=== PATIENT | male | born 1995 | race Two or more races ===

== ENCOUNTER 2024-11-29 22:52 | Inpatient (IN) | payer OTHER, SELFPAY ==
[2024-11-29] VITALS (17 sets, daily range): BP systolic 114–154; BP diastolic 82–104
--- NOTE | 2024-11-29 16:53 | ED.GENMED ---
History of Present Illness
General
Chief Complaint: Abdominal Symptoms
Time Seen by Provider: 11/29/24 16:52
History of Present Illness
History of Present Illness:
FOCUSED PAST MEDICAL HISTORY
- Cerebral palsy, hydrocephalus, has had sigmoid volvulus
REVIEW OF OLD RECORDS
- No old records available for review in [facility]
Note:
CHIEF COMPLAINT(S)
Abdominal pressure and pain.
HISTORY OF PRESENT ILLNESS
The patient is a 29-year-old male who presents with a chief complaint of abdominal pressure and pain. The discomfort began months ago but has worsened significantly in the past two to three days. The patient describes the sensation as 'pressure' in
the abdomen, triggered by minimal touch. He has a history of a past abdominal surgery as a small child, which included a fundoplication in [place] and surgical intervention in 2017 for sigmoid volvulus at [facility] of note, mother is unhappy with
the care at [facility].. The recent exacerbation of symptoms prompted this visit. The patient denies any episodes of vomiting and reports regular bowel movements, typically occurring daily.
PAST MEDICAL AND SURIGICAL HISTORY
The patient has a history of undergoing fundoplication at and surgical intervention for sigmoid volvulus. The original surgical procedures were performed in [place], with the most recent one occurring in 2017.
EXTERNAL RECORDS REVIEWED
No external records available as the patient recently moved to this area from a different location, and there are no documented medical records at this facility.
SOCIAL HISTORY
The patient resides in [place].
PHYSICAL EXAM
General: Alert, appears comfortable unless his abdomen is palpated
Skin: Warm, dry.
Head: Normocephalic, atraumatic.
Neck: Supple, trachea midline.
Eye Ears, nose, mouth and throat: Oral mucosa moist.
Cardiovascular: Normal peripheral perfusion, no edema.
Respiratory: Respirations are non-labored.
Gastrointestinal: There is moderate diffuse abdominal tenderness with no definite peritoneal signs, surgical scar noted in the lower abdomen and upper abdomen
Back: Normal range of motion, normal alignment.
Musculoskeletal: Normal ROM, normal strength.
Neurological: Abnormal speech pattern consistent with known diagnosis of cerebral palsy, decreased strength all extremities, poor coordination chronic
Psychiatric: Cooperative, appropriate mood & affect.
PROBLEM LIST
Acute:
- Abdominal pressure and pain
Chronic:
- History of fundoplication
- History of sigmoid volvulus
PLAN
- Recommend a computed tomography (CT) scan of the abdomen to assess the cause of the abdominal pressure and pain.
DIFFERENTIAL DIAGNOSIS
The Differential Diagnosis includes, in no particular order and is not limited to:
1. Adhesions from previous surgeries
2. Recurrent volvulus
3. Partial bowel obstruction
4. Abdominal hernia
5. Intra-abdominal mass
6. Gastroesophageal reflux disease
7. Peptic ulcer disease
8. Irritable bowel syndrome
9. Diverticulitis
10. Pancreatitis
RADIOLOGY
- CT imaging obtained
EKG
- Sinus 96, normal axis, nonspecific ST
LABS
- White count normal, hemoglobin 18.2, normal chemistries and lipase
UPDATE
-SUMMARY OF ENCOUNTER
The patient, a 29-year-old male, presented to the emergency department with a chief complaint of worsening abdominal pressure and pain over the past two to three days. The pain, described as a pressure sensation, is exacerbated by minimal touch. The
patients past surgical history includes a fundoplication and surgical intervention for a sigmoid volvulus, with the most recent procedure in 2017. Given the history and current symptoms, there is a concern for possible complications such as
adhesions or recurrent volvulus. The recommendation for further evaluation was made after consultation with a colorectal surgeon.
I discussed case with Dr. Jo who suggested, given the patient's worsening symptoms, patient be admitted to the hospitalist service and they can evaluate later and consider procedure if needed
DISPOSITION
Admit.
MANAGEMENT OF THE PATIENTS CARE WAS DISCUSSED WITH
The emergency physician discussed the case with both a colorectal surgeon and hospitalist doctors. The recommendation, as per the colorectal surgeon, was to admit the patient for further evaluation by the surgical team.
PLAN
The plan is to admit the patient for further evaluation by the colorectal surgical team. The hospitalist will assess the patient during the hospital stay, and the colorectal doctors will evaluate the patient further the following day.
MEDICAL DECISION MAKING
- Number and Complexity of Problems Addressed: Chronic conditions affecting care include the history of fundoplication and sigmoid volvulus. Differential diagnosis considerations include adhesions from previous surgeries, recurrent volvulus, partial
bowel obstruction, abdominal hernia, intra-abdominal mass, gastroesophageal reflux disease, peptic ulcer disease, irritable bowel syndrome, diverticulitis, and pancreatitis.
DIAGNOSIS
- Sigmoid colonic stricture
Phy Exam
Physical Exam
Physical Exam:
See HPI
Course
Orders/Labs/Results
Orders:
Orders
11/29/24 13:08
EKG [Electrocardiogram (*1)] Urgent
Reason for Study: Chest Pain
EKG- Treatment ONCE
11/29/24 17:02
CT Abd/pelvis W Iv Cont Urgent
Comment:
Reason For Exam: h/o Marc as child; sigmoid vololus surg 2017;harish
0.9% Sodium Chloride 1000 ml [Nss] 1,000 ml IV BOLUS
11/29/24 17:48
Complete Blood Count/With Diff Urgent
11/29/24 19:01
Comprehensive Metabolic Panel Urgent
Lipase Urgent
Abnormal Lab Results
11/29/24 11/29/24
17:48 19:01
Hgb 18.2 H g/dL
(13.0-18.0)
Hct 52.4 H %
(39.0-52.0)
Absolute Monos (auto) 0.7 H 10^3/uL
(0.1-0.6)
Lymphocytes % 17.0 L %
(20.5-51.1)
Creatinine 0.4 L mg/dL
(0.7-1.3)
11/29/24 17:48
11/29/24 19:01
Vital Signs
Initial and Last Documented VS:
Initial Vital Signs
Pulse Resp BP Pulse Ox
110 17 125/89 98
11/29/24 13:13 11/29/24 13:13 11/29/24 13:13 11/29/24 13:13
Last Documented Vital Signs
Pulse Resp BP Pulse Ox
110 20 138/96 97
11/29/24 13:13 11/29/24 17:11 11/29/24 20:00 11/29/24 20:45
*Pulse Oximetry
SaO2: 98
Oxygen Mode of Delivery: Room air
Patient hypoxic: no
*Critical Care Note
Total Time (30-74mins, 75-104mins- exclusive of procedures): Not Applicable
ED Attending Note
-
Portions of this chart may have been created with voice recognition software.� Occasional wrong word or��sound alike� substitutions may have occurred due to the inherent limitations of voice recognition software.
Discharge Plan
Departure
Patient Disposition: Admit
Date of Disposition: 11/29/24
Time of Disposition: 21:15
Presentation/result/management discussed w/ accepting MD/DO: Hospitalist
Discharge Problem:
Abdominal pain
Referrals:
Deloris Tompkins DO [Family Provider, Internal Medicine]
Interventions
Interventions:
*Risk Screen - Suicide Last Done: 11/29/24 13:13
*General Assessment Last Done: 11/29/24 13:13
*Neglect/Abuse Screening Last Done: 11/29/24 13:13
*ED- Fall Risk Assessment Last Done: 11/29/24 17:12
*ED COVID-19 Vaccine History Last Done: 11/29/24 13:13
FL-Dslgvy-Wsdtxmkoee Assessment Last Done: 11/29/24 17:11
Discharge Date and Time
Print Language: GREENLANDIC
[2024-11-29 17:54] LABS: Hematocrit 52.4 % (39.0-52.0); Hemoglobin 18.2 g/dL (13.0-18.0); Mean Corp Hgb Conc. 34.7 g/dL (33.0-37.0); Mean Corpuscular Volume 86.5 fL (80.0-94.0); Nucleated Red Blood Cells % 0 % (-); Platelet Count 275 10^3/uL (130-400); Red Cell Dist. Width 12.3 % (11.5-14.5)
[2024-11-29] MEDS: NSS 1000 IV (18:01)
[2024-11-29 19:27] LABS: ALT (SGPT) 32 U/L (0-50); AST (SGOT) 35 U/L (17-59); Albumin 4.1 g/dl (3.5-5.0); Alkaline Phosphatase 89 U/L (38-126); Blood Urea Nitrogen 12 mg/dl (9-20); Calcium 9.3 mg/dl (8.4-10.2); Carbon Dioxide 24 mmol/L (22-30); Chloride 107 mmol/L (98-107); Glucose 70 mg/dl (70-99); Lipase 48 U/L (23-300); Potassium 3.6 mmol/L (3.5-5.1); Sodium 139 mmol/L (135-145); Total Protein 6.6 g/dl (6.3-8.2); eGFR > 60.00
--- NOTE | 2024-11-29 22:34 | HPS.HSE ---
Addendum entered and electronically signed by Barbie Corado MD 11/30/24 00:48:
Patient on Eliquis for prior DVT. Will hold in anticipation of any procedures.
Addendum entered and electronically signed by Barbie Corado MD 11/29/24 23:58:
Patient has G-tube and gets feedings via G-tube.
Original Note:
Family Physician
-
Family Physician: Deloris Tompkins
Chief Complaint
-
abdominal pain
History of Present Illness
29-year-old male past medical history of cerebral palsy, hydrocephalus with UMBRELLA FRAME MAKER shunt revised several times now draining to the right atrium, paraesophageal hernia as a child status post Marc fundoplication in [place] with persistent hernia,
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
months. He has severe pain in his right upper quadrant area which is sensitive to even touch. He has been eating but only eats once a day. Denies any fevers or chills. He has a history of constipation takes bowel regimen. Denies vomiting.
No chest pain or shortness of breath.
Patient follows with [facility] physicians for paraesophageal hernia and has seen GI, cardiothoracic surgery and surgeons and are not satisfied with the care they are receiving. Has a portion of the pancreas and the hernia.
Medical History
Past Medical History
Past Medical History: Reports Other (cerebral palsy, hydrocephalus with UMBRELLA FRAME MAKER shunt revised several times now draining to the right atrium, paraesophageal hernia as a child status post Marc fundoplication in [place] with persistent hernia, sigmoid
volvulus status post colon resection and anastomosis in 2017 at [facility], constipation, )
Past Surgical History: Reports Other (Marc fundoplication, UMBRELLA FRAME MAKER shunt with revisions, sigmoid volvulus status post colon resection)
Social History
Tobacco: Non-smoker
Alcohol: None
Drug: None
Family History
Family History: Not pertinent
Allergies / Home Medications
Allergies reflects when Allergies were last updated in [employer].
Home Medications with original date entered in [employer]
Allergy/Medication List:
Allergies
Allergy/AdvReac Type Severity Reaction Status Date / Time
vancomycin Allergy Rash Verified 11/29/24 13:21
Review of Systems
-
History Source: Patient
A 12 point ROS was completed and negative except as noted: Yes
Constitutional: Reports No Symptoms
EENT: Reports No Symptoms
Respiratory: Reports No Symptoms
Cardiac: Reports No Symptoms
Abdomen/GI: Reports See HPI
: Reports No Symptoms
Musculoskeletal: Reports No Symptoms
Skin: Reports No Symptoms
Neurological: Reports No Symptoms
Endocrine: Reports No Symptoms
Hematologic/Lymphatic: Reports No Symptoms
Psych: Reports No Symptoms
Physical Exam
Vital Signs
Vital Signs
Pulse Resp BP Pulse Ox
106 18 133/84 93
11/29/24 22:05 11/29/24 22:05 11/29/24 22:00 11/29/24 22:00
Physical Exam
General: Well Developed, Well Nourished and No Apparent Distress
HEENT: NormoCephalic, Moist mucous membranes and Atraumatic
Respiratory: Clear
Cardiac: S1/S2 and Regular Rhythm; No Murmur or Rub
GI: Soft, Normal Bowel Sounds, Tender (diffusely ) and Distended; No Organomegaly
Rectal: Deferred by Provider
Musculoskeletal: No Clubbing, No Cyanosis and No Edema
Skin: No Rash
Neuro: Nonfocal/grossly intact
Laboratory Results
-
11/29/24 17:48
11/29/24 19:01
Laboratory Results
Total Bilirubin 0.9 mg/dl (0.2-1.3) 11/29/24 19:01
AST 35 U/L (17-59) 11/29/24 19:01
ALT 32 U/L (0-50) 11/29/24 19:01
Alkaline Phosphatase 89 U/L (38-126) 11/29/24 19:01
Lipase 48 U/L (23-300) 11/29/24 19:01
Data Reviewed
-
Lab Data: Labs Reviewed by me
Old Records: Reviewed
Impression/Plan
-
IMPRESSION:
PLAN:
# Sigmoid colon stricture secondary to prior colon resection
# History of sigmoid volvulus status post colon resection anastomosis in 2017
- CT abdomen pelvis shows sigmoid colon stricture causing mild colonic dilatation
-N.p.o.
-IV fluids given
-Dilaudid for pain
- Colorectal surgery consulted
# Paraesophageal hernia status post Marc fundoplication as a child with persistent hernia
- Recent CAT scan done previous shows some of the pancreas in the chest but today's CAT scan does not show any acute findings regarding paraesophageal hernia
Cerebral palsy
History of hydrocephalus with UMBRELLA FRAME MAKER shunt provide several times now draining into the right atrium
Constipation
- Continue bowel regimen
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
History of DVT upper extremities in 2017
Full code
DVT prophylaxis�heparin
N.p.o.
[2024-11-30 00:35] VITALS: BP 127/75
[2024-11-30] MEDS: NSS 1000 IV ×2 (00:45→10:41)
--- NOTE | 2024-11-30 03:30 | PTCARENOTE ---
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
distention ongoing for months. He has severe pain in his right upper quadrant area which is sensitive to even touch. He has been eating but only eats once a day. Denies any fevers or chills. He has a history of constipation takes bowel regimen.
CT abdomen pelvis shows sigmoid colon stricture causing mild colonic dilatation. N.P.O., IV fluids given, Dilaudid for pain, Colorectal surgery consulted Pt arrived from ED at 00:10, pt is AOx3, pain currently is at an acceptable, bed in a low
position, call light in reach.
[2024-11-30 07:05] VITALS: BP 114/78
--- NOTE | 2024-11-30 07:11 | W.PN.HOSP.TC ---
Today's Communication/Plan
-
See plan
Assessment / Plan
Assessment / Plan
Physical Exam
General: Not in acute distress
HEENT: Normocephalic, Moist mucous membranes
Respiratory: Clear to Auscultation Bilaterally
Cardiac: S1/S2 and Regular Rhythm
GI: Soft, Normal Bowel Sounds, Tender (diffusely ) and Distended
Musculoskeletal: No Cyanosis and No Edema
Skin: Warm. Dry.
Neuro: Nonfocal/grossly intact
Assessment/Plan
[facility] H&P
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
for months. He has severe pain in his right upper quadrant area which is sensitive to even touch. He has been eating but only eats once a day. Denies any fevers or chills. He has a history of constipation takes bowel regimen. Denies vomiting.
No chest pain or shortness of breath.
Patient follows with [facility] physicians for paraesophageal hernia and has seen GI, cardiothoracic surgery and surgeons and are not satisfied with the care they are receiving. Has a portion of the pancreas and the hernia.
# Sigmoid colon stricture secondary to prior colon resection
# History of sigmoid volvulus status post colon resection anastomosis in 2017
- CT abdomen pelvis shows sigmoid colon stricture causing mild colonic dilatation
-N.p.o.
-IV fluids given
-Dilaudid for pain
- Colorectal surgery consulted
-Plan for flexible sigmoidoscopy with stricture dilation tomorrow; Bowel prep today
-Continue to hold Eliquis
- Possible surgery if dilation does not succeed
# Paraesophageal hernia status post Marc fundoplication as a child with persistent hernia
- Recent CAT scan done previous shows some of the pancreas in the chest but CAT scan this hospitalization does not show any acute findings regarding paraesophageal hernia
-Patient has G-tube and gets feedings via G-tube.
Cerebral palsy
History of hydrocephalus with SURVEY PARTY CHIEF shunt provide several times now draining into the right atrium
Constipation
- Continue bowel regimen
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
History of DVT upper extremities in 2017
-Eliquis is on hold in anticipation of any possible procedures
Full code
DVT prophylaxis�heparin
N.p.o.
Anticipated Discharge: 24 - 48 hours
Subjective/Interval History
-
Date of Service: November 30, 2024
Patient was seen and examined. His mom was present in his room at the time of patient encounter. His mom said no new issues for the patient.
Objective Data
-
Labs:
Laboratory Results
11/29/24 11/30/24
19:01 06:00
WBC Pending
Hgb Pending
Hct Pending
Plt Count Pending
Sodium 139 Pending
Potassium 3.6 Pending
Chloride 107 Pending
Carbon Dioxide 24 Pending
BUN 12 Pending
Creatinine 0.4 L Pending
Glucose 70 Pending
Calcium 9.3 Pending
Total Bilirubin 0.9 Pending
AST 35 Pending
ALT 32 Pending
Alkaline Phosphatase 89 Pending
Vital Signs:
Vital Signs
Temp Pulse Resp BP Pulse Ox
98.3 F 99 15 127/75 94
11/30/24 00:35 11/30/24 00:35 11/30/24 00:35 11/30/24 00:35 11/30/24 00:35
I&O
11/29/24 11/30/24 12/01/24
06:59 06:59 06:59
Intake Total 625 / 625
Output Total 200 / 200
Balance 425 / 425
[2024-11-30] MEDS: PULMICORT INH (08:20)
[2024-11-30] MEDS: VENTOLIN NEBULES INH (08:20)
[2024-11-30] MEDS: SENOKOT-S 1 TABLET PO ×3 (08:46→21:00)
[2024-11-30] MEDS: GAVILAX 4 GM PO (08:46)
[2024-11-30] MEDS: THERAGRAN 1 TABLET TUBE (08:46)
[2024-11-30] MEDS: LIORESAL 15 MG TUBE ×3 (08:46→20:59)
[2024-11-30] MEDS: CLARITIN 10 MG PO (08:46)
[2024-11-30] MEDS: HEPARIN 5000 UNITS SC ×2 (09:06→20:58)
[2024-11-30] MEDS: DILAUDID 0.5 MG IV ×3 (09:08→21:00)
[2024-11-30 09:27] LABS: Hematocrit 49.8 % (39.0-52.0); Hemoglobin 16.9 g/dL (13.0-18.0); Mean Corp Hgb Conc. 33.9 g/dL (33.0-37.0); Mean Corpuscular Volume 89.7 fL (80.0-94.0); Nucleated Red Blood Cells % 0 % (-); Platelet Count 250 10^3/uL (130-400); Red Cell Dist. Width 12.5 % (11.5-14.5)
[2024-11-30 10:16] LABS: ALT (SGPT) 31 U/L (0-50); AST (SGOT) 21 U/L (17-59); Albumin 4.3 g/dl (3.5-5.0); Alkaline Phosphatase 61 U/L (38-126); Blood Urea Nitrogen 12 mg/dl (9-20); Calcium 9.4 mg/dl (8.4-10.2); Carbon Dioxide 20 mmol/L (22-30); Chloride 109 mmol/L (98-107); Estimated Creatinine Clearance 117 ml/min; Glucose 59 mg/dl (70-99); Potassium 4.1 mmol/L (3.5-5.1); Sodium 140 mmol/L (135-145); Total Protein 6.8 g/dl (6.3-8.2); eGFR > 60.00
[2024-11-30] MEDS: VENTOLIN NEBULES 2.5 MG INH ×3 (12:03→19:27)
[2024-11-30 13:20] VITALS: BMI 23.0
--- NOTE | 2024-11-30 13:21 | CM ---
CM following re: discharge planning.
Reviewed pt's chart, met with pt. Pt's mother and [facility] caregiver at bedside.
Pt is a 29 year old male, admitted with primary dx of abdominal pain. PMH: cerebral palsy, hydrocephalus with FORK TRUCK DRIVER shunt revised several times now draining to the right atrium, paraesophageal hernia as a child status post Marc fundoplication in
[place] with persistent hernia, sigmoid volvulus status post colon resection and anastomosis [place] [address] 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
Pt is able to communicate with mother's support. pt lives with mother, grandmother and a sister in a mobile home, no steps to enter. Pt is w/c bound, has caregiver services from 9:00 a.m till 10:30 p.m. daily provided by [facility] and pt is known
to [facility] for skilled services. Per mother, she is able to get the pt to a car and from the car and she transported the pt to appointments.
PCP: Deloris Tompkins
Pharmacy: [facility]
D/C plan: home with resumptions of [facility] caregiver services and family support. Mother to transport at discharge.
CM will follow with discharge plan updates as hospitalization progresses
--- NOTE | 2024-11-30 13:52 | CON.CRS ---
Consultation
-
Date/Time Consultation Requested: 11/30/2024, 08:30
Date/Time Consultation Performed: 11/30/2024, 00:10
Requesting Provider: Barbie Corado MD
Performing Provider: Sergei Jo MD
Reason for Consultation: sigmoid stricture
Medical History
-
Chief Complaint: ruq pain
History of Present Illness:
History obtained from prior medical documentation as patient has cerebral palsy and his mother is sleeping.
29-year-old male with a past medical history of cerebral palsy hydrocephalus status post CHIEF ORTHOPTIST shunt with multiple revisions now draining into right atrium, paraesophageal hernia, Niesen fundoplication in [place], sigmoid volvulus status post colon
resection anastomosis is seen [facility] in 2017, constipation, history of DVT on Eliquis, presents to [facility] with abdominal pain and distention for several months. The area of concern is in the right upper quadrant. He usually only eats
once a day because of this. Denies fevers or chills. A CT was performed which showed concern for sigmoid stricture causing mild colonic dilation. WBC was 8.5 on arrival. He has remained afebrile. Heart rate has been 99-1 10. Given the above
findings, we been consulted for further surgical opinion.
Past Medical History
Past Medical History: Other (cerebral palsy, hydrocephalus with CHIEF ORTHOPTIST shunt revised several times now draining to the right atrium, paraesophageal hernia as a child status post Marc fundoplication in [place] with persistent hernia, sigmoid volvulus
status post colon resection and anastomosis in [address] [facility], constipation)
Past Surgical History: Other (Marc fundoplication, CHIEF ORTHOPTIST shunt with revisions, sigmoid volvulus status post colon resection)
Social History
Tobacco: Non-Smoker
Alcohol: None
Drug: None
Family History
Family History: Reviewed & Not Pertinent
Allergies / Home Medications
Allergy/AdvReac Type Severity Reaction Status Date / Time
vancomycin Allergy Rash Verified 11/29/24 23:08
�Medication �Instructions �Recorded �Confirmed �Type
apixaban 5 mg tablet (Eliquis) 5 mg feeding tube BID Blood Clot 11/29/24 11/29/24 History
Prevention/Tx
ascorbic acid (vitamin C) 25 mg 25 mg TID Supplement 11/29/24 11/29/24 History
tablet
baclofen 15 mg tablet 15 mg feeding tube TID Muscle 11/29/24 11/29/24 History
Spasms
budesonide 0.5 mg/2 mL suspension 0.5 mg inhalation BID 11/29/24 11/29/24 History
for nebulization Lung/Breathing Issues
fexofenadine 30 mg/5 mL oral 30 mg DAILY Allergies 11/29/24 11/29/24 History
suspension
formoterol fumarate 20 mcg/2 mL 2 ml inhalation BID Lung/Breathing 11/29/24 11/29/24 History
solution for nebulization Issues
multivitamin 1 tab feeding tube DAILY Supplement 11/29/24 11/29/24 History
polyethylene glycol 3350 17 4 g feeding tube .[id number] 11/29/24 11/29/24 History
gram/dose oral powder (Miralax) Constipation
sennosides 8.6 mg-docusate sodium 1 tab-cap TID Constipation 11/29/24 11/29/24 History
50 mg tablet (Senna Plus)
Review of Systems
-
History Source: Patient
Abdomen/GI: Abdominal Pain (RUQ)
A 10 point review of systems was completed, and was negative except as per HPI.
Physical Exam
Vital Signs
Temp 98.1 F 11/30/24 07:05
Pulse 111 11/30/24 07:05
Resp Rate 16 11/30/24 07:05
Blood pressure 114/78 11/30/24 07:05
SaO2 98 11/30/24 07:05
11/29/24 11/30/24 12/01/24
06:59 06:59 06:59
Actual Weight 49.9 kg
Body Mass Index (BMI) 0.0
Lab Results / Allergies
11/30/24 08:54
11/30/24 08:54
WBC 7.8 10^3/uL (4.8-10.8) 11/30/24 08:54
Hgb 16.9 g/dL (13.0-18.0) 11/30/24 08:54
Hct 49.8 % (39.0-52.0) 11/30/24 08:54
Plt Count 250 10^3/uL (130-400) 11/30/24 08:54
Abs Immat Gran (auto) 0.0 10^3/uL (0-0.05) 11/30/24 08:54
Neutrophils % 80.1 % (42.2-75.2) H 11/30/24 08:54
Allergy/AdvReac Type Severity Reaction Status Date / Time
vancomycin Allergy Rash Verified 11/29/24 23:08
Physical Exam
General: Well Developed and No Apparent Distress
GI: Tender (RUQ - mild)
Skin: Warm and Dry
Data Reviewed
-
CT Scan: Image Personally Visualized and interpreted and Report Reviewed by me
Labs: Labs Reviewed by me and Discussed with Physician
Old Records: Reviewed
Assessment / Plan
-
Assessment: 29-year-old male with a significant past medical history of cerebral palsy, hydrocephalus with CHIEF ORTHOPTIST shunt, and sigmoid volvulus status post resection anastomosis in [address] [facility], presents with several months of abdominal pain and
distention found to have a sigmoid stricture
Plan:
-The plan for flexible sigmoidoscopy with stricture dilation tomorrow
- Bowel prep today
- Hold Eliquis
- Possible surgery if dilation does not succeed
- Mother is present in the room but she is sleeping and not arousable. Will discuss plan of care with her later when she wakes.
[2024-11-30] MEDS: LR 1000 IV (14:08)
[2024-11-30 14:50] VITALS: BP 115/74
[2024-11-30 18:48] LABS: Glucose - Point of Care 52 mg/dl (70-99)
[2024-11-30] MEDS: D5LR 1000 IV (18:54)
--- NOTE | 2024-11-30 19:14 | PTCARENOTE ---
Bedside glucose at [address] Stuart made aware. Dr. Stuart did not want protocol. D5LR @ 75 ordered and started at 1854. Instructed RN to recheck glucose in 1 hour after start of infusion. shift supervisor rn RN made aware.
[2024-11-30] MEDS: PULMICORT 0.5 MG INH (19:26)
[2024-11-30 22:07] LABS: Glucose - Point of Care 83 mg/dl (70-99)
[2024-11-30 23:03] VITALS: BP 149/88
[2024-12-01] LABS: Glucose - Point of Care 88 mg/dl (70-99)
[2024-12-01 06:57] LABS: Glucose - Point of Care 90 mg/dl (70-99)
[2024-12-01 07:05] LABS: Hematocrit 44.4 % (39.0-52.0); Hemoglobin 15.5 g/dL (13.0-18.0); Mean Corp Hgb Conc. 34.9 g/dL (33.0-37.0); Mean Corpuscular Volume 88.8 fL (80.0-94.0); Platelet Count 211 10^3/uL (130-400); Red Cell Dist. Width 12.2 % (11.5-14.5)
[2024-12-01 07:10] VITALS: BP 99/75
[2024-12-01 07:18] LABS: Blood Urea Nitrogen 7 mg/dl (9-20); Calcium 9.0 mg/dl (8.4-10.2); Carbon Dioxide 25 mmol/L (22-30); Chloride 107 mmol/L (98-107); Estimated Creatinine Clearance 117 ml/min; Glucose 85 mg/dl (70-99); Magnesium 1.9 mg/dl (1.6-2.3); Potassium 3.7 mmol/L (3.5-5.1); Sodium 137 mmol/L (135-145); eGFR > 60.00
[2024-12-01] MEDS: PULMICORT 0.5 MG INH ×2 (07:48→20:04)
[2024-12-01] MEDS: VENTOLIN NEBULES 2.5 MG INH ×2 (07:48→20:04)
[2024-12-01] MEDS: D5LR 1000 IV (08:46)
[2024-12-01] MEDS: CLARITIN 10 MG PO (08:47)
[2024-12-01] MEDS: LIORESAL 15 MG TUBE ×3 (08:47→21:35)
[2024-12-01] MEDS: HEPARIN 5000 UNITS SC (08:49)
[2024-12-01] MEDS: SENOKOT-S 1 TABLET PO (08:51)
[2024-12-01] MEDS: THERAGRAN 1 TABLET TUBE (08:51)
--- NOTE | 2024-12-01 10:31 | W.PN.HOSP.TC ---
Today's Communication/Plan
-
See plan
Assessment / Plan
Assessment / Plan
Physical Exam
General: Not in acute distress
HEENT: Normocephalic, Moist mucous membranes
Respiratory: Clear to Auscultation Bilaterally
Cardiac: S1/S2 and Regular Rhythm
GI: Soft, Normal Bowel Sounds, Tender (diffusely ) and Distended
Musculoskeletal: No Cyanosis and No Edema
Skin: Warm. Dry.
Neuro: Nonfocal/grossly intact
Assessment/Plan
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
for months. He has severe pain in his right upper quadrant area which is sensitive to even touch. He has been eating but only eats once a day. Denies any fevers or chills. He has a history of constipation takes bowel regimen. Denies vomiting. No
chest pain or shortness of breath.
Patient follows with [facility] physicians for paraesophageal hernia and has seen GI, cardiothoracic surgery and surgeons and are not satisfied with the care they are receiving. Has a portion of the pancreas and the hernia.
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
#History of sigmoid volvulus status post colon resection anastomosis in 2017
-CT abdomen pelvis showed sigmoid colon stricture causing mild colonic dilatation
-Continue NPO
-Continue IV fluids
-Dilaudid for pain
-Hold laxatives except enema as per colorectal surgery
-Colorectal surgery consulted
-Plan for flexible sigmoidoscopy with stricture dilation tomorrow; Bowel prep today
-Continue to hold Eliquis
- Possible surgery if dilation does not succeed
#Asymptomatic Hypoglycemia
-Glucose improved with Dextrose-containing IV fluids
-Continue D5LR IV fluids
#Paraesophageal hernia status post Marc fundoplication as a child with persistent hernia
-Recent CAT scan done previous shows some of the pancreas in the chest but CAT scan this hospitalization does not show any acute findings regarding paraesophageal hernia
-Patient has G-tube and gets feedings via G-tube.
Cerebral palsy
History of hydrocephalus with LOCAL AREA NETWORK SYSTEMS ADMINSTRATOR shunt provide several times now draining into the right atrium
Constipation
-Continue bowel regimen
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
History of DVT upper extremities in 2017
History of DVT in the lower extremiti(es) -- as per patient and his mother
-Eliquis is on hold in anticipation of any possible procedures
-Check upper and lower extremity ultrasound studies to check for current DVT clot burden in order to decide whether patient should be on Heparin Drip in lieu of Eliquis which is being held
Full code
DVT prophylaxis�heparin subq
N.p.o.
Anticipated Discharge: > 48 hours
Subjective/Interval History
-
Date of Service: December 01, 2024
Patient was seen and examined. Patient is still having pain on the right side of his abdomen.
Objective Data
-
Labs:
Laboratory Results
12/01/24 12/01/24
00:30 06:05
WBC 3.7 L
Hgb 15.5
Hct 44.4
Plt Count 211
Sodium Cancelled 137
Potassium Cancelled 3.7
Chloride Cancelled 107
Carbon Dioxide Cancelled 25
BUN Cancelled 7 L
Creatinine Cancelled 0.5 L
Glucose Cancelled 85
Calcium Cancelled 9.0
Vital Signs:
Vital Signs
Temp Pulse Resp BP Pulse Ox
98.1 F 96 18 99/75 97
12/01/24 07:10 12/01/24 07:51 12/01/24 07:51 12/01/24 07:10 12/01/24 07:51
I&O
11/30/24 12/01/24 12/02/24
06:59 06:59 06:59
Intake Total 625 / 625 1300 / 1300
Output Total 200 / 200 850 / 850 1000 / 1000
Balance 425 / 425 450 / 450 -1000 / -1000
[2024-12-01 10:38] VITALS: BP 125/83
[2024-12-01] MEDS: DILAUDID 0.5 MG IV ×3 (10:38→21:46)
[2024-12-01] MEDS: VENTOLIN NEBULES INH ×2 (11:19→15:20)
--- NOTE | 2024-12-01 11:38 | W.PN.CRS1 ---
Today's Communication / Plan
-
as below
Assessment/Plan
-
29-year-old male with PMH of cerebral palsy, hydrocephalus s/p TECHNICAL DOCUMENT WRITER shunt (s/p multiple revisions, tip of catheter in right atrium), DVT (on Eliquis, per mom, last dose was morning of 11/29), history of sigmoid volvulus s/p sigmoidectomy at [facility]
in 2017 who presents with abdominal distention and pain, WBC 8.5, CT showing concern for sigmoid colon stricture just distal to colorectal anastomosis with proximal dilation of sigmoid colon, but ascending colon and transverse colon normal in caliber
AF, was initially tachycardic, but now in the 80s�90s, normotensive
WBC 3.7, Hb 15.5, CR 0.5
� Anastomotic stricture; radiographically, he is not obstructed as there is no significant dilation of the proximal colon; however, clinically he is at least partially obstructed; due to his cognitive impairment, it is difficult to ascertain if he
is having true bowel function (i.e. flatus)
�As he remains tender and no reported BMs; I recommended further workup; I specifically recommended proceeding with flexible sigmoidoscopy as he is outside of the 48-hour window from his last Eliquis dose; I explained that this would be diagnostic
and therapeutic with dilation of the stricture; however, I reviewed the risks involved with dilation, including, but not limited to, failure to dilate the stricture and perforation requiring urgent surgery; therefore, I explained that I would
consent for possible surgery if we were to proceed with flexible sigmoidoscopy in the off chance that there was a perforation; after lengthy discussion, the patient's mother was not willing to consent for flexible sigmoidoscopy at this moment; I
explained that we could do further investigation with a Gastrografin enema; however, this would not be therapeutic, so if a complete obstruction was identified, he would still need a procedure, such as sigmoidoscopy with dilation versus surgery; she
understood well and agreed with the Gastrografin enema
�Will proceed with Gastrografin enema, discussed with Dr. Mcdonald
-Discussed with Dr. Jordan with GI in case patient needs sigmoidoscopy with dilation; will await GGE results before formal consultation
�Continue n.p.o. with IVF; keep G-tube clamped; if any nausea or vomiting, would switch to drainage
� Pain control with Dilaudid as needed
� DVT PPx with subQ heparin
�Hold MiraLAX and Senokot for now
� Appreciate hospitalist, discussed with Dr. Umaña
Subjective Data
Subjective Data
Date of Service: December 01, 2024
Per nurse and mother, no BM today or yesterday. Patient thinks he passed some gas, but is not sure.
Still having pain on the right side. Mom vented his G-tube, but there was no drainage
He denies any nausea or vomiting
Objective Data
-
Vital Signs
Temp Pulse Resp BP Pulse Ox
98.1 F 105 18 125/83 97
12/01/24 07:10 12/01/24 10:38 12/01/24 07:51 12/01/24 10:38 12/01/24 07:51
Intake & Output
11/30/24 12/01/24 12/02/24
06:59 06:59 06:59
Intake Total 625 / 625 1300 / 1300
Output Total 200 / 200 850 / 850 1300 / 1300
Balance 425 / 425 450 / 450 -1300 / -1300
Intake:
IV fluids (Total) 625 / 625 1200 / 1200
Amount instilled into GI Tube ( 100 / 100
Total)
Gastrostomy 100 / 100
Output:
Urine, Voided 200 / 200 850 / 850 1300 / 1300
Lab Results
12/01/24 06:05
12/01/24 06:05
Physical Exam
-
General: No Acute Distress and Other (Alert; contracted extremities; interactive, answers questions)
HEENT: Grossly Normal
Abdomen: Soft, Distended (Mildly distended, subtle tympany), Tender (Moderately tender in the right mid to upper abdomen, nontender in the remaining quadrants; no rebound or guarding) and Other (G-tube in place and clamped)
Skin: Warm and Dry
Wound: No Signs of Infection and No Skin Erythema
Data Reviewed
-
CT Scan: Image Reviewed
[2024-12-01 12:40] LABS: Glucose - Point of Care 83 mg/dl (70-99)
--- NOTE | 2024-12-01 14:16 | CM ---
CM following re: discharge planning.
Reviewed pt's chart, met with pt. Pt remains NPO, Colorectal surgery following, continue supportive care.
Pt lives with mother, grandmother and a sister in a mobile home, no steps to enter. Pt is w/c bound, has caregiver services from 9:00 a.m till 10:30 p.m. daily provided by [facility] and pt is known to [facility] for skilled services. Per mother, she
is able to get the pt to a car and from the car and she transported the pt to appointments.
D/C plan: home with resumptions of [facility] caregiver services and family support. Mother to transport at discharge.
CM will follow with discharge plan updates as hospitalization progresses
--- NOTE | 2024-12-01 16:33 | W.PN.UPDATE ---
Update Note
Progress Note Update
I reviewed the Gastrografin images and discussed with Dr. Mcdonald. There is no concern for stricture at the site that was identified on the CT scan. The contrast traversed this area and filled more proximally without issue. I spoke with the mother
over the phone. I explained that there is no concern for stricture at this point. I would restart his bowel regiment to keep his stools looser and would continue workup for right upper quadrant abdominal pain. He will need outpatient follow-up
for consideration of flexible sigmoidoscopy versus colonoscopy for direct visualization of the anastomosis, but this is nonurgent and unlikely associated with his current symptoms. D/w Dr. Umaña. Colorectal will sign off. Please call for any
questions or concerns.
[2024-12-01 18:14] LABS: Glucose - Point of Care 80 mg/dl (70-99)
[2024-12-01] MEDS: KLOR-CON 20 MEQ TUBE (20:21)
[2024-12-01] MEDS: ELIQUIS 5 MG TUBE (20:21)
[2024-12-01] MEDS: SENOKOT-S 1 TABLET TUBE (21:35)
[2024-12-01 22:31] LABS: Potassium 4.1 mmol/L (3.5-5.1)
[2024-12-01 23:00] VITALS: BP 116/74
[2024-12-01 23:49] LABS: Glucose - Point of Care 108 mg/dl (70-99)
[2024-12-02] MEDS: D5LR 1000 IV ×2 (00:58→17:22)
[2024-12-02 06:11] LABS: Glucose - Point of Care 113 mg/dl (70-99)
[2024-12-02 07:05] VITALS: BP 116/78
[2024-12-02] MEDS: PULMICORT 0.5 MG INH ×2 (08:02→20:28)
[2024-12-02] MEDS: VENTOLIN NEBULES 2.5 MG INH ×2 (08:02→20:28)
[2024-12-02 08:21] LABS: Hematocrit 48.0 % (39.0-52.0); Hemoglobin 16.5 g/dL (13.0-18.0); Mean Corp Hgb Conc. 34.4 g/dL (33.0-37.0); Mean Corpuscular Volume 87.9 fL (80.0-94.0); Platelet Count 237 10^3/uL (130-400); Red Cell Dist. Width 12.6 % (11.5-14.5)
[2024-12-02 08:26] LABS: ALT (SGPT) 30 U/L (0-50); AST (SGOT) 23 U/L (17-59); Albumin 3.9 g/dl (3.5-5.0); Alkaline Phosphatase 48 U/L (38-126); Blood Urea Nitrogen 9 mg/dl (9-20); Calcium 9.8 mg/dl (8.4-10.2); Carbon Dioxide 24 mmol/L (22-30); Chloride 109 mmol/L (98-107); Estimated Creatinine Clearance 117 ml/min; Glucose 102 mg/dl (70-99); Magnesium 2.2 mg/dl (1.6-2.3); Potassium 4.1 mmol/L (3.5-5.1); Sodium 141 mmol/L (135-145); Total Protein 6.5 g/dl (6.3-8.2); eGFR > 60.00
[2024-12-02] MEDS: DILAUDID 0.5 MG IV ×2 (09:01→19:59)
[2024-12-02] MEDS: KLOR-CON 20 MEQ TUBE (09:02)
[2024-12-02] MEDS: LIORESAL 15 MG TUBE ×3 (09:02→21:25)
[2024-12-02] MEDS: SENOKOT-S 1 TABLET TUBE ×3 (09:02→21:25)
[2024-12-02] MEDS: THERAGRAN 1 TABLET TUBE (09:02)
[2024-12-02] MEDS: ELIQUIS 5 MG TUBE ×2 (09:02→19:58)
[2024-12-02] MEDS: CLARITIN 10 MG TUBE (09:02)
[2024-12-02] MEDS: MIRALAX 8.5 GRAMS TUBE (09:05)
[2024-12-02] MEDS: VENTOLIN NEBULES INH ×3 (11:10→15:39)
[2024-12-02 12:11] LABS: Glucose - Point of Care 109 mg/dl (70-99)
--- NOTE | 2024-12-02 12:43 | PTOTSP ---
Speech Therapy Evaluation:
Pt with chronic risk factors of dysphagia including cerebral palsy, hiatal hernia, and cognitive impairment. Pt's mother reported multiple prior swallow studies at OSH, all which were normal. She reported he receives primary means of
nutrition/hydration via PEG with supplemental intake of regular solids (swedish fries, chips, pretzels) and thin liquids. At bedside, no overt s/sx of aspiration observed across trials. Imaging with clear lung bases.
Recommend:
1. Cont. primary means of nutrition/hydration via PEG with supplemental intake of regular solids and thin liquids.
2. Medications via PEG
3. Strict aspiration and reflux precautions
4. Assistance and supervision with PO intake
5. REGISTERED REPRESENTATIVE to follow to monitor tolerance of diet, provide education in aspiration and reflux precautions, and determine if pt would benefit from repeat instrumental, however does not appear indicated at this time
[2024-12-02] MEDS: D5LR IV (12:47)
--- NOTE | 2024-12-02 12:50 | W.PN.HOSP.TC ---
Today's Communication/Plan
-
Hold tube feeds due to abdominal bloating/distension
AXR
RUQ ultrasound
GI consulted
Assessment / Plan
Assessment / Plan
Physical Exam
General: Not in acute distress
HEENT: Normocephalic, Moist mucous membranes
Respiratory: Clear to Auscultation Bilaterally
Cardiac: S1/S2 and Regular Rhythm
GI: Soft, Normal Bowel Sounds, Tender (diffusely ) and Distended
Musculoskeletal: No Cyanosis and No Edema
Skin: Warm. Dry.
Neuro: Nonfocal/grossly intact
Assessment/Plan
29-year-old male past medical history of cerebral palsy, hydrocephalus with GUIDE WINDER shunt revised several times now draining to the right atrium, paraesophageal hernia as a child status post Marc fundoplication in [place] with persistent hernia with G
tube, sigmoid volvulus status post colon resection and anastomosis in [address] 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
for months. He has severe pain in his right upper quadrant area which is sensitive to even touch. He has been eating but only eats once a day. Denies any fevers or chills. He has a history of constipation takes bowel regimen. Denies vomiting. No
chest pain or shortness of breath.
Patient follows with [facility] physicians for paraesophageal hernia and has seen GI, cardiothoracic surgery and surgeons and are not satisfied with the care they are receiving. Has a portion of the pancreas and the hernia.
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
#History of sigmoid volvulus status post colon resection anastomosis in 2017
#Abdominal Distension on 12/02/24
-CT abdomen pelvis showed sigmoid colon stricture causing mild colonic dilatation
-Continue IV fluids
-Tube feeds were resumed on 12/01/24 after no stricture found (see below), but due to abdominal distension, tube feeds held again, IV fluids resumed
-Dilaudid for pain
-Okay to continue Laxatives as per colorectal surgery
-Colorectal surgery consult appreciated
-Flexible sigmoidoscopy with stricture dilation showed no stricture -- on 12/01/24
-Eliquis resumed
#Asymptomatic Hypoglycemia
-Glucose improved with Dextrose-containing IV fluids
-Continue D5LR IV fluids
#Paraesophageal hernia status post Marc fundoplication as a child with persistent hernia
-Recent CAT scan done previous shows some of the pancreas in the chest but CAT scan this hospitalization does not show any acute findings regarding paraesophageal hernia
-Patient has G-tube and gets feedings via G-tube.
Cerebral palsy
History of hydrocephalus with GUIDE WINDER shunt provide several times now draining into the right atrium
Constipation
-Continue bowel regimen
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
History of DVT upper extremities in 2017
History of DVT in the lower extremiti(es) -- as per patient and his mother
-Eliquis
Full code
DVT prophylaxis�heparin subq
Anticipated Discharge: 24 - 48 hours
Subjective/Interval History
-
Date of Service: December 02, 2024
Patient was seen and examined. He reported right lower chest wall and right upper quadrant pain.
Objective Data
-
Labs:
Laboratory Results
12/02/24
07:13
WBC 4.6 L
Hgb 16.5
Hct 48.0
Plt Count 237
Sodium 141
Potassium 4.1
Chloride 109 H
Carbon Dioxide 24
BUN 9
Creatinine 0.5 L
Glucose 102 H
Calcium 9.8
Total Bilirubin 0.7
AST 23
ALT 30
Alkaline Phosphatase 48
Vital Signs:
Vital Signs
Temp Pulse Resp BP Pulse Ox
98.1 F 78 18 116/78 97
12/02/24 07:05 12/02/24 08:04 12/02/24 08:04 12/02/24 07:05 12/02/24 08:04
I&O
12/01/24 12/02/24 12/03/24
06:59 06:59 06:59
Intake Total 1300 / 1300 1320 / 1320
Output Total 850 / 850 1750 / 1750
Balance 450 / 450 -430 / -430
--- NOTE | 2024-12-02 13:06 | CM ---
Addendum entered by Fox Corea 12/02/24 16:01:
CM met with pt and his mother at bedside. Pt's mother confirmed that pt has [facility] PDN (Private Duty Nurses) services and not caregiver services.
D/C plan: home with resumptions of [facility] PDN services and family support. Mother to transport at discharge.
Original Note:
M following re: discharge planning.
Reviewed pt's chart, met with pt.
Per Colorectal surgery, outpatient follow-up for consideration of flexible sigmoidoscopy recommended.
Pt lives with mother, grandmother and a sister in a mobile home, no steps to enter. Pt is w/c bound, has caregiver services from 9:00 a.m till 10:30 p.m. daily provided by [facility] and pt is known to [facility] for skilled services. Per mother, she
is able to get the pt to a car and from the car and she transported the pt to appointments.
D/C plan: home with resumptions of [facility] caregiver services and family support. Mother to transport at discharge.
CM will follow with discharge plan updates as hospitalization progresses
[2024-12-02 15:18] VITALS: BP 117/80
--- NOTE | 2024-12-02 15:23 | PN.CDI ---
CDI
- -
CDI:
Physician Documentation Request
Admit Date: 11/29/24 22:52
Dear Doctor Narciso,
Clinical Indicators:
Patient admitted with sigmoid colon stricture; PEG in place.
Current Clinical Data, Previous Functional Ability: Dependent
Case management note, '...w/c bound, has caregiver services from 9:00 a.m till 10:30 p.m.'
Nursing shift assessments, Bilateral contractures to hands, Bilateral foot drop
Please clarity which, if any, of the following is a likely etiology of the above abnormalities and treatment rendered:
Functional quadriplegia (complete immobility due to severe physical disability or frailty)
Generalized weakness or frailty (without complete immobility)
Other (please specify):
Use of terms such as suspected, likely, concern for, or probable (associated with a specific diagnosis that is being evaluated, monitored, or treated as if it exists) are acceptable and can be coded in the inpatient setting, when documented at the
time of discharge.
Thank you,
KHAHN Diaz RN
CDI Specialist
available via tiger text
Please use your independent medical judgment in providing your response.
--- NOTE | 2024-12-02 17:20 | PTCARENOTE ---
Pt reports feeling gassy and bloated. Pt appears more distended. Dr. Stuart notified. Tube feed stopped. Abd xray ordered. Care ongoing.
[2024-12-02 17:58] LABS: Glucose - Point of Care 106 mg/dl (70-99)
[2024-12-02 23:00] VITALS: BP 110/78
[2024-12-02 23:34] LABS: Glucose - Point of Care 82 mg/dl (70-99)
[2024-12-03 05:53] LABS: Glucose - Point of Care 92 mg/dl (70-99)
[2024-12-03] MEDS: D5LR 1000 IV ×2 (06:31→21:14)
[2024-12-03 07:10] VITALS: BP 92/61
[2024-12-03] MEDS: PULMICORT 0.5 MG INH ×2 (07:43→19:35)
[2024-12-03] MEDS: VENTOLIN NEBULES 2.5 MG INH ×3 (07:43→19:35)
--- NOTE | 2024-12-03 07:53 | CON.GI ---
Consultation
-
Date/Time Consultation Requested: 12/02/2024
Date/Time Consultation Performed: 12/03/2024
Requesting Provider:
Performing Provider:
Reason for Consultation: RUQ pain
Medical History
Chief Complaint / HPI
Chief Complaint: RUQ pain
History of Present Illness:
This is a 29-year-old male past medical history of cerebral palsy, hydrocephalus with MELTING FURNACE SKIMMER shunt revised several times now draining to the right atrium, paraesophageal hernia status post Marc fundoplication in [place] as a child with recurrent
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
11/29/2024 for chronic abdominal pain. History obtained both from the patient and from his mom. He has been apparently having right upper quadrant pain for the past couple of months and follows up regularly with his GI at [facility] and was sent to
therapeutic GI in [facility] and also has seen cardiothoracic surgery for recurrent hiatal hernia. She showed me an imaging that he had at [facility] for CT chest abdomen and pelvis about a month ago and was noted to have a recurrent
hiatal hernia with a portion of the body of the pancreas in the hernia also. Although CT here only shows a small hiatal hernia on admission CT also showed probable anastomotic stricture with proximal colon distention and then he subsequently had a
Gastrografin enema after being seen by colorectal surgery. The Gastrografin enema was unremarkable with no evidence of colonic and or anastomotic stricture there was mild rectal stool burden with some retained contrast in the rectum and descending
colon as well as a redundant and mildly dilated colon in the region of the anastomosis. Apparently he was recommended a lidocaine patch at the site of the pain which mom says did not really help with his pain. He says that the pain is sometimes
with eating but is also positional sometimes. He does have chronic constipation and he usually gets senna 3 times a day and MiraLAX 3-4 times a week and usually has a bowel movement daily. No nausea or vomiting. No rectal bleeding or melena. He
also denies any dysphagia symptoms he usually eats 1 meal usually dinner and gets nocturnal tube feeds through the G-tube
Past Medical History
Past Medical History: Other (cerebral palsy, hydrocephalus with MELTING FURNACE SKIMMER shunt revised several times now draining to the right atrium, paraesophageal hernia as a child s/p Marc fundoplication in [place] with recc hernia, sigmoid volvulus s/p colon
resection and anastomosis in 2017 at [facility], testicle torsion, DVT)
Past Surgical History: Other (Marc fundoplication, MELTING FURNACE SKIMMER shunt with revisions, sigmoid volvulus status post colon resection, resection of testicle for torsion)
Social History
Tobacco: Non-Smoker
Alcohol: None
Drug: None
Living: With Family
Family History
Family History: Reviewed & Not Pertinent
Allergies / Home Medications
Allergy/AdvReac Type Severity Reaction Status Date / Time
vancomycin Allergy Rash-Red Verified 11/30/24 18:51
Man
Syndrome
�Medication �Instructions �Recorded
apixaban 5 mg tablet (Eliquis) 5 mg feeding tube BID Blood Clot 11/29/24
Prevention/Tx
ascorbic acid (vitamin C) 25 mg 25 mg TID Supplement 11/29/24
tablet
baclofen 15 mg tablet 15 mg feeding tube TID Muscle 11/29/24
Spasms
budesonide 0.5 mg/2 mL suspension 0.5 mg inhalation BID 11/29/24
for nebulization Lung/Breathing Issues
fexofenadine 30 mg/5 mL oral 30 mg DAILY Allergies 11/29/24
suspension
formoterol fumarate 20 mcg/2 mL 2 ml inhalation BID Lung/Breathing 11/29/24
solution for nebulization Issues
multivitamin 1 tab feeding tube DAILY Supplement 11/29/24
polyethylene glycol 3350 17 4 g feeding tube .QMONWEDFRISUN 11/29/24
gram/dose oral powder (Miralax) Constipation
sennosides 8.6 mg-docusate sodium 1 tab-cap TID Constipation 11/29/24
50 mg tablet (Senna Plus)
Review of Systems
-
All other systems: A 12 pt ROS was Negative except as stated above in HPI
Vital Signs
Temp Pulse Resp BP Pulse Ox
98.4 F 79 18 92/61 96
12/03/24 07:10 12/03/24 07:45 12/03/24 07:45 12/03/24 07:10 12/03/24 07:45
Physical Exam
Exam
General: No Apparent Distress
HEENT: Normocephalic
Respiratory: Clear
Cardiac: S1/S2
GI: Other (Soft, mild distended , right upper quadrant tenderness especially over the right upper quadrant incision site, good bowel sounds, PEG site looks clean with some minimal excoriated skin)
Musculoskeletal: No Clubbing
Skin: Warm
Neuro: Awake, Alert and Oriented
Psych: Calm
Results
WBC 4.6 10^3/uL (4.8-10.8) L 12/02/24 07:13
Hgb 16.5 g/dL (13.0-18.0) 12/02/24 07:13
Hct 48.0 % (39.0-52.0) 12/02/24 07:13
MCV 87.9 fL (80.0-94.0) 12/02/24 07:13
Plt Count 237 10^3/uL (130-400) 12/02/24 07:13
Absolute Neuts (auto) 6.2 10^3/uL (1.4-6.5) 11/30/24 08:54
Sodium 141 mmol/L (135-145) 12/02/24 07:13
Potassium Cancelled 12/03/24 00:30
Chloride 109 mmol/L (98-107) H 12/02/24 07:13
Carbon Dioxide 24 mmol/L (22-30) 12/02/24 07:13
BUN 9 mg/dl (9-20) 12/02/24 07:13
Creatinine 0.5 mg/dL (0.7-1.3) L 12/02/24 07:13
Calcium 9.8 mg/dl (8.4-10.2) 12/02/24 07:13
Total Bilirubin 0.7 mg/dl (0.2-1.3) 12/02/24 07:13
AST 23 U/L (17-59) 12/02/24 07:13
ALT 30 U/L (0-50) 12/02/24 07:13
Alkaline Phosphatase 48 U/L (38-126) 12/02/24 07:13
Lipase 48 U/L (23-300) 11/29/24 19:01
Diagnostic Image Results:
12/02/2024 KUB
FINDINGS/IMPRESSION:
Gaseous distention of the colon and some residual contrast material noted in the colon and rectum from the patient's recent fluoroscopic examination. No disproportionally dilated loops of small bowel. No appreciable intraperitoneal free air.
A percutaneous gastrostomy tube projects over the left hemiabdomen.
12/02/2024 CXR
IMPRESSION:
No acute cardiopulmonary process.
12/01/2024 Gastrografin enema
IMPRESSION:
There is no evidence of sigmoid colonic or anastomotic stricture.
Mild rectal stool burden.
Postevacuation images demonstrated some retained contrast within the rectum and descending colon which is likely secondary to a mild rectal stool burden as well as a redundant and mildly dilated sigmoid colon in the region of the anastomosis.
11/29/2024 Ct abdomen and pelvis
IMPRESSION: Findings raising concern for a sigmoid colon stricture causing mild colonic dilatation. No evidence of intestinal obstruction.
Small hiatal hernia.
PEG tube.
Postsurgical change.
Mild prostate hypertrophy.
Assessment / Plan
-
1. Chronic right upper quadrant pain which is sometimes worse after eating and PEG tube feeds but sometimes is also positional. 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
the incision site in the right upper quadrant and may benefit from pain management consult as outpatient at [facility], lidocaine patch did not really help with the symptoms. Could also be referred pain from his back and may benefit from CT or MRI
of his back. I think the pain is also related to chronic colonic distention with constipation he was noted to have minimal colonic distention on the CT and the Gastrografin enema but no obvious evidence of anastomotic stricture seen on the
Gastrografin enema although there was questionable stricture noted on the initial CT. He has been having regular bowel movements with senna 3 times daily and the MiraLAX which I encouraged him to use daily currently using it 3 times a week and also
use a suppository or enema as needed. GAS X prn. There was no evidence of gallstones on the CT and no evidence of pancreatitis LFTs were also unremarkable.
2. He does have a history of large hiatal hernia status post Marc's fundoplication with repair of hernia as a child but has recurrence of hiatal hernia with also a small part of the body of the pancreas in the hernia, follow-up with his GI at . ""[facility] he apparently has also seen CT surgery in the past and recommended to hold off on repeat surgery to repair the hiatal hernia for now. currently he has no signs of obstruction, no nausea or vomiting
Follow-up with GI and pain management at [facility]. No further GI workup indicated urgently here. Would recommend a repeat endoscopy if not already done recently at [facility] which he can follow-up as outpatient along with colonoscopy.
Data Reviewed
-
Radiology: Report Reviewed by me
CT Scan: Image Personally Visualized and interpreted and Report Reviewed by me
Time spent with patient (in minutes): 60
-
-
Thank you for consultation and allowing me to participate in the patient's care. Please call the masonry instructor GI physician during the after hours with any questions or concerns.
[2024-12-03] MEDS: SENOKOT-S 1 TABLET TUBE ×3 (08:20→21:15)
[2024-12-03] MEDS: ELIQUIS 5 MG TUBE ×2 (08:20→20:36)
[2024-12-03] MEDS: THERAGRAN 1 TABLET TUBE (08:20)
[2024-12-03] MEDS: LIORESAL 15 MG TUBE ×3 (08:21→21:15)
[2024-12-03] MEDS: CLARITIN 10 MG TUBE (08:21)
[2024-12-03] MEDS: DILAUDID 0.5 MG IV ×2 (08:35→21:15)
[2024-12-03 11:06] LABS: Hematocrit 54.2 % (39.0-52.0); Hemoglobin 18.7 g/dL (13.0-18.0); Mean Corp Hgb Conc. 34.5 g/dL (33.0-37.0); Mean Corpuscular Volume 90.0 fL (80.0-94.0); Platelet Count 257 10^3/uL (130-400); Red Cell Dist. Width 12.4 % (11.5-14.5)
[2024-12-03 11:47] LABS: ALT (SGPT) 32 U/L (0-50); AST (SGOT) 27 U/L (17-59); Albumin 4.7 g/dl (3.5-5.0); Alkaline Phosphatase 55 U/L (38-126); Blood Urea Nitrogen 6 mg/dl (9-20); Calcium 10.1 mg/dl (8.4-10.2); Carbon Dioxide 27 mmol/L (22-30); Chloride 106 mmol/L (98-107); Estimated Creatinine Clearance 117 ml/min; Glucose 86 mg/dl (70-99); Magnesium 2.1 mg/dl (1.6-2.3); Potassium 4.2 mmol/L (3.5-5.1); Sodium 143 mmol/L (135-145); Total Protein 7.4 g/dl (6.3-8.2); eGFR > 60.00
[2024-12-03 12:30] LABS: Glucose - Point of Care 84 mg/dl (70-99)
--- NOTE | 2024-12-03 13:32 | W.PN.HOSP.TC ---
Today's Communication/Plan
-
Resume tube feeds and monitor gastric residuals
Continue IV fluids for now, avoid hypoglycemia
Dulcolax 10 mg suppository every night as per my discussion with GI Dr. Drummond
Assessment / Plan
Assessment / Plan
Physical Exam
General: Not in acute distress
HEENT: Normocephalic, Moist mucous membranes
Respiratory: Clear to Auscultation Bilaterally
Cardiac: S1/S2 and Regular Rhythm
GI: Soft, Normal Bowel Sounds, Tender (diffusely ) and Distended. PEG tube site.
Musculoskeletal: No Cyanosis and No Edema
Skin: Warm. Dry.
Neuro: Nonfocal/grossly intact
Assessment/Plan
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
for months. He has severe pain in his right upper quadrant area which is sensitive to even touch. He has been eating but only eats once a day. Denies any fevers or chills. He has a history of constipation takes bowel regimen. Denies vomiting. No
chest pain or shortness of breath.
Patient follows with [facility] physicians for paraesophageal hernia and has seen GI, cardiothoracic surgery and surgeons and are not satisfied with the care they are receiving. Has a portion of the pancreas and the hernia.
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
#History of sigmoid volvulus status post colon resection anastomosis in 2017
#Abdominal Distension on 12/02/24
-CT abdomen pelvis showed sigmoid colon stricture causing mild colonic dilatation
-Can wean off IV fluids as tube feeds resumed again today
-Tube feeds were resumed on 12/01/24 after no stricture found (see below), but due to abdominal distension, tube feeds held again, but spoke on 12/03/[address] Drummond, and plan as per our discussion is to resume his
tube feeds today as per supervisor tellers's/dietitians latest recommendations, and also start Dulcolax 10 mg nightly suppository to help with ileus and constipation
-Patient's family is concerned about abdominal distension after tube feeds have been running -- spoke with Dr. Drummond as above, distension can be expected with his abdominal history, start tube feeds, if having residuals can
consider starting Reglan, place order for Dulcolax 10 mg at night every night, nothing else to do for now as long as he is not having nausea/vomiting
-Recheck abdominal x-ray tomorrow morning
-Spoke with surgeon Dr. Gonzales who will review case and see patient tomorrow
-Pain control as needed
-Colorectal surgery consult appreciated
-Gastrograffin enema showed no stricture -- on 12/01/24 -- patient will need outpatient follow-up for consideration of flexible sigmoidoscopy versus colonoscopy for direct visualization of the anastomosis, but this is nonurgent
and unlikely associated with his current symptoms
-Eliquis resumed
#Asymptomatic Hypoglycemia
-Glucose improved with Dextrose-containing IV fluids
-Continue D5LR IV fluids for now, but as tube feedings resumed, glucose is expected to improve
#Paraesophageal hernia status post Marc fundoplication as a child with persistent hernia
-Recent CAT scan done previous shows some of the pancreas in the chest but CAT scan this hospitalization does not show any acute findings regarding paraesophageal hernia
-Patient has G-tube and gets feedings via G-tube.
Cerebral palsy
History of hydrocephalus with MAINTENANCE SERVICE DISPATCHER shunt provide several times now draining into the right atrium
Constipation
-Continue bowel regimen
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
History of DVT upper extremities in 2017
History of DVT in the lower extremiti(es) -- as per patient and his mother
-Continue Eliquis
Full code
DVT prophylaxis�heparin subq
On 12/03/24, I spoke to patient's mom Madison over the phone, discussed plan going forward, please see above.
Anticipated Discharge: Within 24 hours
Subjective/Interval History
-
Date of Service: December 03, 2024
Patient was seen and examined. Still with some abdominal discomfort.
Objective Data
-
Labs:
Laboratory Results
12/03/24 12/03/24
00:30 10:46
WBC 4.8
Hgb 18.7 H
Hct 54.2 H
Plt Count 257
Sodium 143
Potassium Cancelled 4.2
Chloride 106
Carbon Dioxide 27
BUN 6 L
Creatinine 0.6 L
Glucose 86
Calcium 10.1
Total Bilirubin 0.9
AST 27
ALT 32
Alkaline Phosphatase 55
Vital Signs:
Vital Signs
Temp Pulse Resp BP Pulse Ox
98.4 F 78 18 92/61 96
12/03/24 07:10 12/03/24 11:48 12/03/24 11:48 12/03/24 07:10 12/03/24 11:48
I&O
12/02/24 12/03/24 12/04/24
06:59 06:59 06:59
Intake Total 1320 / 1320 540 / 540
Output Total 1750 / 1750 735 / 735 300 / 300
Balance -430 / -430 -195 / -195 -300 / -300
[2024-12-03 15:05] VITALS: BP 121/86
[2024-12-03] MEDS: VENTOLIN NEBULES INH (15:17)
[2024-12-03 18:35] LABS: Glucose - Point of Care 86 mg/dl (70-99)
[2024-12-03 23:00] VITALS: BP 114/77
[2024-12-04 01:19] LABS: Blood Urea Nitrogen 5 mg/dl (9-20); Calcium 9.2 mg/dl (8.4-10.2); Carbon Dioxide 27 mmol/L (22-30); Chloride 107 mmol/L (98-107); Estimated Creatinine Clearance 117 ml/min; Glucose 439 mg/dl (70-99); Potassium 3.8 mmol/L (3.5-5.1); Sodium 139 mmol/L (135-145); eGFR > 60.00
[2024-12-04 01:56] LABS: Glucose - Point of Care 82 mg/dl (70-99)
[2024-12-04 02:59] LABS: Glucose 97 mg/dl (70-99)
[2024-12-04 06:41] LABS: Glucose - Point of Care 116 mg/dl (70-99)
[2024-12-04 07:10] VITALS: BP 125/71
[2024-12-04] MEDS: PULMICORT 0.5 MG INH (07:29)
[2024-12-04] MEDS: VENTOLIN NEBULES 2.5 MG INH ×2 (07:30→15:14)
[2024-12-04 07:51] LABS: Hematocrit 47.8 % (39.0-52.0); Hemoglobin 16.7 g/dL (13.0-18.0); Mean Corp Hgb Conc. 34.9 g/dL (33.0-37.0); Mean Corpuscular Volume 89.5 fL (80.0-94.0); Platelet Count 235 10^3/uL (130-400); Red Cell Dist. Width 12.4 % (11.5-14.5)
[2024-12-04] MEDS: CLARITIN 10 MG TUBE (07:55)
[2024-12-04] MEDS: LIORESAL 15 MG TUBE ×2 (07:56→16:24)
[2024-12-04] MEDS: SENOKOT-S 1 TABLET TUBE ×2 (07:56→16:24)
[2024-12-04] MEDS: THERAGRAN 1 TABLET TUBE (07:56)
[2024-12-04] MEDS: ELIQUIS 5 MG TUBE (07:57)
--- NOTE | 2024-12-04 08:00 | W.PN.HOSP.TC ---
Today's Communication/Plan
-
Discharge today
Assessment / Plan
Assessment / Plan
Physical Exam
General: Not in acute distress
HEENT: Normocephalic, Moist mucous membranes
Respiratory: Clear to Auscultation Bilaterally
Cardiac: S1/S2 and Regular Rhythm
GI: Soft, Normal Bowel Sounds, Tender (diffusely ) and Distended. PEG tube site.
Musculoskeletal: No Cyanosis and No Edema
Skin: Warm. Dry.
Neuro: Nonfocal/grossly intact
Assessment/Plan
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
for months. He has severe pain in his right upper quadrant area which is sensitive to even touch. He has been eating but only eats once a day. Denies any fevers or chills. He has a history of constipation takes bowel regimen. Denies vomiting. No
chest pain or shortness of breath.
Patient follows with [facility] physicians for paraesophageal hernia and has seen GI, cardiothoracic surgery and surgeons and are not satisfied with the care they are receiving. Has a portion of the pancreas and the hernia.
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
#History of sigmoid volvulus status post colon resection anastomosis in 2017
#Abdominal Distension on 12/02/24
-CT abdomen pelvis showed sigmoid colon stricture causing mild colonic dilatation, but this was found not to be the case after Gastrografin study was done (see below)
-Tube feeds were resumed on 12/01/24 after no stricture found (see below), but due to abdominal distension, tube feeds held again, but spoke on 12/03/[address] Drummond, and plan as per our discussion is to resume his
tube feeds as per supervisor detasseling crew's/dietitians latest recommendations, and also start Dulcolax 10 mg nightly suppository to help with ileus and constipation
-Tube feeds being tolerated well
-Patient's family is concerned about abdominal distension after tube feeds have been running -- spoke with Dr. Drummond as above, distension can be expected with his abdominal history, start tube feeds, if having residuals can
consider starting Reglan, place order for Dulcolax 10 mg at night every night, nothing else to do for now as long as he is not having nausea/vomiting
-Repeat abdominal x-ray similar to prior x-ray, with some improvement in gaseous distension
-Discuss possible Reglan with outpatient secondary school teacher librarian
-Spoke with surgeon Dr. Gonzales who recommended continuing tube feeds and bowel regimen
-Pain control as needed
-Colorectal surgery consult appreciated
-Gastrograffin enema showed no stricture -- on 12/01/24 -- patient will need outpatient follow-up for consideration of flexible sigmoidoscopy versus colonoscopy for direct visualization of the anastomosis, but this is nonurgent
and unlikely associated with his current symptoms
-Return to the ER if any new symptoms or signs
#Asymptomatic Hypoglycemia
-Improved with IV fluids when tube feeds were being held
-Glucose is now much improved with tube feeds
-Will provide dietitian's tube feeding recommendations to patient and his mom, on discharge instructions
#Paraesophageal hernia status post Marc fundoplication as a child with persistent hernia
-Recent CAT scan done previous shows some of the pancreas in the chest but CAT scan this hospitalization does not show any acute findings regarding paraesophageal hernia
-Patient has G-tube and gets feedings via G-tube.
Cerebral palsy
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
Constipation
-Continue bowel regimen
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
History of DVT upper extremities in 2017
History of DVT in the lower extremiti(es) -- as per patient and his mother
-Continue Eliquis
Generalized Weakness
Full code
DVT prophylaxis�heparin subq
On 12/03/24, I spoke to patient's mom Madison over the phone, discussed plan going forward, please see above.
On 12/04/24, I spoke to patient's mom Madison inside the patient's room, I discussed patient's complex medical history, discussed plan going forward.
More than 30 minutes spent in discharge including
Final examination of the patient
Summarizing hospital stay
Instructions for continuing care to all relevant caregivers
Preparation of discharge records, prescriptions, and referral forms
Total time spent (in minutes): 42
Anticipated Discharge: Today
Subjective/Interval History
-
Date of Service: December 04, 2024
Patient was seen and examined. I discussed case with patient's nurse who said patient had no significant abdominal distension while getting tube feeds, he also had a bowel movement overnight.
Objective Data
-
Labs:
Laboratory Results
12/04/24 12/04/24 12/04/24
00:49 02:24 07:31
WBC 5.0
Hgb 16.7
Hct 47.8
Plt Count 235
Sodium 139 Pending
Potassium 3.8 Pending
Chloride 107 Pending
Carbon Dioxide 27 Pending
BUN 5 L Pending
Creatinine 0.5 L Pending
Glucose 439 H 97 Pending
Calcium 9.2 Pending
Vital Signs:
Vital Signs
Temp Pulse Resp BP Pulse Ox
97.8 F 89 16 114/77 96
12/03/24 23:00 12/04/24 07:32 12/04/24 07:32 12/03/24 23:00 12/04/24 07:32
I&O
12/03/24 12/04/24 12/05/24
06:59 06:59 06:59
Intake Total 540 / 540 1040 / 1040
Output Total 735 / 735 450 / 450
Balance -195 / -195 590 / 590
[2024-12-04 10:40] LABS: Blood Urea Nitrogen 9 mg/dl (9-20); Calcium 10.1 mg/dl (8.4-10.2); Carbon Dioxide 29 mmol/L (22-30); Chloride 105 mmol/L (98-107); Estimated Creatinine Clearance 117 ml/min; Glucose 79 mg/dl (70-99); Potassium 4.0 mmol/L (3.5-5.1); Sodium 141 mmol/L (135-145); eGFR > 60.00
[2024-12-04 12:47] VITALS: BP 119/81
[2024-12-04 13:07] LABS: Glucose - Point of Care 105 mg/dl (70-99)
[2024-12-04] MEDS: VENTOLIN NEBULES INH (13:28)
--- NOTE | 2024-12-04 13:47 | W.PN.CRS1 ---
Today's Communication / Plan
-
surgery to follow peripherally, please call with questions/concerns
Assessment/Plan
-
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 Who presented with abdominal pain and progressing rectal pressure
for about [address] without PO contrast with concern for sigmoid stricture with follow up image with gastrografin enema without stricture present.
Improving with bowel regimen, tolerating TF thus far. Still with some bloating. Surgery reconsulted to answer mother's questions which were addressed. No surgical intervention warranted given follow up imaging demonstrating patent sigmoid colon
without stricture.
Plan:
Continue TF and bowel regimen
GI follow up planned as outpatient with primary GI
Dispo/medical management as per primary team
Subjective Data
Subjective Data
Date of Service: December 04, 2024
Pt seen and examined at bedside with Dr Gonzales. Reports some rectal pressure and bloating but passing gas and tolerating tube feedings.
Objective Data
-
Vital Signs
Temp Pulse Resp BP Pulse Ox
98.4 F 89 16 125/71 96
12/04/24 07:10 12/04/24 07:32 12/04/24 07:32 12/04/24 07:10 12/04/24 07:32
Intake & Output
12/03/24 12/04/24 12/05/24
06:59 06:59 06:59
Intake Total 540 / 540 1040 / 1040 240 / 240
Output Total 735 / 735 450 / 450 390 / 390
Balance -195 / -195 590 / 590 -150 / -150
Intake:
IV fluids (Total) 420 / 420
Tube feeding 320 / 320 320 / 320 135 / 135
Feeding tube flush amount 160 / 160 300 / 300 75 / 75
Amount instilled into GI Tube ( 60 / 60
Total)
Gastrostomy / 60
Output:
Gastrointestinal tube output (
Total)
Gastrostomy
Urine, Voided 735 / 735 450 / 450 380 / 380
Other:
How many times incontinent 1
MODERATE amount urine
Lab Results
12/04/24 07:31
12/04/24 09:40
Physical Exam
-
General: No Acute Distress and Other (Alert; contracted extremities; interactive, answers questions)
HEENT: Grossly Normal
Abdomen: Soft, Distended (Mildly distended), Non Tender and Other (G-tube in place and TF running)
Skin: Warm and Dry
Wound: No Signs of Infection and No Skin Erythema
--- NOTE | 2024-12-04 14:56 | CM ---
CM following re: discharge planning.
Reviewed pt's chart, met with pt and pt's mother at bedside.
According to pt is medically stable to be discharge today. Both pt and his mother are aware and mother stated she will transport her son home on family accessible w/c van.
Pt has [facility] PDN services daily from 9:00 a.m. till 10:30 p.m. CM spoke to [facility] JOSE Guerin and she confirmed that they will resume PDN services today. [phone]
Please fax discharge instructions to [facility] [phone].
D/C plan: home with resumptions of [facility] PDN and family support. Mother to transport.
[2024-12-04 15:00] VITALS: BP 107/82
[2024-12-04 16:15] LABS: Glucose - Point of Care 105 mg/dl (70-99)
--- NOTE | 2024-12-07 10:30 | W.DCSUMMARY ---
Discharge Summary
Discharge Data
Date of Admission: 11/29/24
Date of Discharge: 12/04/24
Total time spent discharging patient (in min): 42
-
Pending Results: No
Hospital Course
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
large hiatal hernia status post Marc's fundoplication with repair of hernia as a child but had recurrence of hiatal hernia with also a small part of the body of the pancreas in the hernia (followed-up with his GI at [facility] he apparently has
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
Patient was noted to have severe pain in his right upper quadrant area which was sensitive to even touch. CT imaging was done showing sigmoid colon stricture causing mild colonic dilatation. Patient was given intravenous fluids (and later, he was
given dextrose-containing intravenous fluids give hypoglycemia while tube feeds had to be held). Colorectal surgeon was consulted. Patient's Eliquis, in order to reduce the risk of excessive bleeding, was held in case patient needed a procedure.
Colorectal surgeon had discussion with the patient's family, and after shared decision-making, decision was made to do a Gastrografin enema. Colorectal surgeon mentioned that, based on the results of the Gastrografin enema, there was actually no
concern for stricture at the site that was identified on the CT scan; patient would need outpatient follow-up for consideration of flexible sigmoidoscopy versus colonoscopy for direct visualization of the anastomosis, but this was nonurgent and
unlikely associated with his current symptoms. Patient's bowel regimen was resumed. Assistant Portfolio Manager/dietitian was consulted for optimal tube feeding regimen for the patient; patient was started on continues tube feeds based on their recommendations.
Patient then had abdominal distension, for which tube feeds were held and intravenous fluids were continued. 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
he has point tenderness over the incision site in the right upper quadrant and he may benefit from pain management consult as outpatient at [facility], it was noted lidocaine patch did not really help with the symptoms, possibly could also be
referred pain from his back and he may benefit from CT or MRI of his back, and also related to chronic colonic distention with constipation; patient had been having regular bowel movements with senna 3 times daily and the MiraLAX which he was
encouraged to use daily currently using it 3 times a week and also use a suppository or enema as needed. It was also recommended to use GAS X as needing for abdominal gas symptoms. There was no evidence of gallstones on the CT and no evidence of
pancreatitis and his liver lab numbers were also unremarkable. Patient was noted to have no signs of obstruction, no nausea or vomiting. Both surgeon and education program specialist recommended follow-up with gastroenterology and pain management at [facility], with no further GI workup indicated urgently here; it was recommended that patient have a repeat endoscopy if not already done recently at [facility] which he could follow-up as outpatient along with colonoscopy. Patient's Dilaudid was
stopped to help with bowel motility. Case was discussed with gastroenterology further and they recommended Dulcolax suppository daily as patient could have a component of ileus. Patient's tube feeds were resumed and patient did not have increased
abdominal distension after the tube feeds were resumed. Case was discussed with patient's mom, and patient was stable for discharge with outpatient follow-up with [facility]. Assistant Portfolio Manager was requested to evaluate patient for optimal
home tube feeds (for longer duration and slower rate than his previous home tube feeds in order to help with patient's abdominal symptoms and distension) and the recommendations are provided below.
Discharge Plan
-
Patient Disposition: Home with Home Care
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
#History of sigmoid volvulus status post colon resection anastomosis in 2017
#Abdominal Distension and Discomfort -- suspected from patient's abdominal history
#Asymptomatic Hypoglycemia
#Paraesophageal hernia status post Marc fundoplication as a child with persistent hernia
#Cerebral palsy
#History of hydrocephalus with AMBULANCE MECHANIC shunt provide several times now draining into the right atrium
#Constipation
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
#History of DVT upper extremities in 2017
#History of DVT in the lower extremiti(es) -- as per patient and his mother
#Generalized Weakness
Condition: Fair
Diet: As tolerated and Tube feeding
Activity: As tolerated
Other Services: PT
Activity Restrictions/Additional Instructions:
Tube Feeding Recommendations (as per dietitian/sawyer cork slabs recommendations): [employer] 1.5 at 50 mL per hr for 16 hours per day. 2.5 cans a day. Will need an additional 650 mL fluid a day through flushes. Will need Basic Metabolic Panel, Magnesium
and Phosphorus checked in 2 to 3 days through outpatient doctor's office to make sure electrolytes are okay.
Discuss the possibility of Reglan per outpatient gastroenterology if appropriate to start (but Reglan can also have significant side effects)
Return to the emergency room if there are any new symptoms or signs
Instructions: Bisacodyl, Simethicone
Referrals:
Deloris Tompkins DO [Family Provider, Internal Medicine] - in less than 1 week
Referral Note: Hospitalization Follow-Up
Additional Discharge Medication Instructions: Bisacodyl is a new suppository medication to help with constipation and patient's symptoms.
Simethicone is a new medication to help with symptoms.
Prescriptions:
New
simethicone 80 mg Tablet,Chewable
40 mg feeding tube QIDPRN PRN (Reason: bloating/abdominal gas) Qty: 60 1RF
bisacodyl 10 mg Suppository
10 mg WA HS Qty: 30 0RF
Continued
multivitamin Tablet
1 tab FEEDING TUBE DAILY
polyethylene glycol 3350 [Miralax] 17 gram/dose Powder
4 g FEEDING TUBE .QMONWEDFRISUN
Eliquis 5 mg Tablet
5 mg feeding tube BID
baclofen 15 mg Tablet
15 mg feeding tube TID
sennosides-docusate sodium [Senna Plus] 8.6-50 mg Tablet
1 tab-cap TID
Patient Comments:
takes via feeding tube per mother
budesonide 0.5 mg/2 mL Suspension For Nebulization
0.5 mg INHALATION BID
ascorbic acid (vitamin C) 25 mg Tablet
25 mg TID
Patient Comments:
per mom pt takes all meds via feeding tube
fexofenadine 30 mg/5 mL Suspension
30 mg DAILY
Patient Comments:
per mom, the pt takes all meds via feeding tube
formoterol fumarate 20 mcg/2 mL Solution For Nebulization
2 ml INHALATION BID
Discharge Orders:
Discharge Patient (As Directed); Ordered 12/04/24
Ordered By: Jose Stuart
Discharge Date and Time
Discharge Date/Time: 12/04/24 17:20
Print Language: CHADIAN
== END 2024-12-04 17:20 | disposition home health service (06) | DRG 392 ==
LOC: 2 SOUTH 22:52
PROVIDERS: ADMITTING PHYSICIAN Hospitalist; ATTENDING PHYSICIAN Hospitalist; CONSULT PHYSICIAN Internal Medicine Gastroenterology; CONSULT PHYSICIAN Surgery; EMERGENCY PHYSICIAN Emergency Medicine; FAMILY PHYSICIAN Internal Medicine
DX: R10.11 Right upper quadrant pain (principal); R14.0 Abdominal distension (gaseous); K59.00 Constipation, unspecified; G80.9 Cerebral palsy, unspecified; N40.0 Benign prostatic hyperplasia without lower urinary tract symptoms; G58.9 Mononeuropathy, unspecified; M62.81 Muscle weakness (generalized); E16.2 Hypoglycemia, unspecified; Q40.1 Congenital hiatus hernia; Z79.899 Other long term (current) drug therapy; Z79.01 Long term (current) use of anticoagulants; Z79.51 Long term (current) use of inhaled steroids; Z86.718 Personal history of other venous thrombosis and embolism; Z87.11 Personal history of peptic ulcer disease; Z93.1 Gastrostomy status; Z98.2 Presence of cerebrospinal fluid drainage device
CPT/HCPCS: 71046; 71100; 74018; 74177; 74270; 76705; 80048; 80053; 82947; 82962; 83690; 83735; 84132; 85025; 85027; 92610; 93005; 93970; 94640; 99285; Q9967